=== PATIENT | male | born 1965 | race Caucasian/White ===

== ENCOUNTER 2017-05-22 08:02 | Day surgery (SDC) | payer BC, SELFPAY | END 2017-05-22 09:00 | disposition home or self-care (01) | PROVIDERS: Family Provider Family Medicine; Visit Provider Internal Medicine | DX: R55 Syncope and collapse (principal); R42 Dizziness and giddiness | CPT/HCPCS: 33282; 96365; 96372; C1764 ==

== ENCOUNTER → 2017-07-28 07:59 | Outpatient (CLI) | payer BC, SELFPAY | PROVIDERS: PCP Family Medicine; Visit Provider Internal Medicine | DX: R00.2 Palpitations (principal); I47.1 Supraventricular tachycardia | CPT/HCPCS: 93017 ==

== ENCOUNTER 2017-09-16 07:07 | Day surgery (SDC) | payer BC, SELFPAY ==
[2017-09-16] VITALS (14 sets, daily range): BP systolic 107–155; BP diastolic 66–93; PULSE 53–84; RESP 16–18; TEMP 36.7; O2SAT 91–100; BMI 29.5
--- NOTE | 2017-09-16 | IR_ITS ---
CARDIAC CATHETERIZATION DATE OF CATHETERIZATION:09/16/2017 8:04 AM PROCEDURES: 1. Left heart catheterization 2. Left ventriculogram 3. Selective coronary angiogram INDICATION FOR TEST: 1. Angina pectoris class III 2. Risk factors for coronary artery disease 3. Abnormal stress test Informed consent was obtained prior to the procedure. COMPLICATIONS: None ESTIMATED BLOOD LOSS: Less than 10 ml. TECHNIQUE: One percent lidocaine used to anesthetize the right anterior aspect of the wrist. The right radial artery was accessed via the Seldinger technique. A 6 Samoan sheath was placed in the right radial artery. 2.5 mg of verapamil, 800 mcg of nitroglycerin and 5000 U Heparin were given through the arterial sheath. The trap catheter was also used to perform left heart catheterization and left ventriculography. At the end of the procedure the patient was transferred to the post-op holding area in stable condition for arterial sheath removal. ANGIOGRAPHIC RESULTS: 1. The left main artery normal 2. The left anterior descending artery is widely patent. 3. The Ramus intermedius is widely patent. 4. The circumflex artery normal 5. The right coronary artery dominant normal 6. The MCGILL ventriculogram reveals normal 65% 7. The left ventricular end-diastolic pressure 10 mmHg IMPRESSION: 1. Widely patent stent in the mid LAD and Ramus. 2. Persistent mild to moderate nonflow limiting disease in the mid LAD. 3. Normal ejection fraction 4. Normal left ventricular end-diastolic pressure PLAN: 1. Evaluation noncardiac chest pain 2. Risk factor modification
[2017-09-16 07:43] LABS: Basophils # 0.1 K/mm3 (0-0.2); Eosinophils # 0.2 K/mm3 (0.0-0.4); Eosinophils % 3.7 % (0.1-12.0); Hematocrit 43.7 % (42.0-52.0); Hemoglobin 14.5 g/dL (14.1-18.0); Lymphocytes # 2.3 K/mm3 (0.7-4.5); Lymphocytes % 37.5 K/mm3 (10-50); Mean Corpuscular HGB Conc 33.3 g/dL (31.8-35.4); Mean Corpuscular Hemoglobin 28.8 pg (27.0-31.2); Mean Corpuscular Volume 86.4 fl (80-94); Mean Platelet Volume 8.7 fl (7.4-10.4); Monocytes # 0.5 K/mm3 (0.1-1.0); Monocytes % 7.3 % (1.7-9.3); Neutrophils # 3.1 K/mm3 (1.8-7.8); Neutrophils % 50.5 % (37.0-80.0); Platelet Count 161 K/mm3 (142-424); Red Blood Count 5.06 M/mm3 (4.60-6.20); White Blood Count 6.2 K/mm3 (4.8-10.8)
[2017-09-16 07:50] LABS: Anion Gap 10.7 mEq/L (5-15); Blood Urea Nitrogen 16 mg/dL (7-18); Carbon Dioxide 30 mmol/L (21.0-32.0); Chloride 100 mmol/L (98-107); Creatinine Clearance Estimated 123 mL/min (0-300); Creatinine,Serum 0.99 mg/dL (0.70-1.30); Estimated Glomerular Filt Rate 80 ml/min (>60); GFR (African American) 96 ML/MIN (>60); Glucose 262 mg/dL (74-106); Potassium 3.7 mmoL/L (3.5-5.1); Sodium 137 mmol/L (136-145)
== END 2017-09-16 12:07 | disposition home or self-care (01) ==
LOC: CATHLAB 07:08
PROVIDERS: PCP Family Medicine; Visit Provider Internal Medicine
DX: I25.118 Atherosclerotic heart disease of native coronary artery with other forms of angina pectoris (principal); R53.83 Other fatigue; R06.09 Other forms of dyspnea; I11.9 Hypertensive heart disease without heart failure; I47.1 Supraventricular tachycardia; Z95.5 Presence of coronary angioplasty implant and graft
CPT/HCPCS: 36415; 80048; 85025; 93458; 99152; C1725; C1769; J1644; Q9967

== ENCOUNTER → 2018-02-18 14:44 | Outpatient (CLI) | payer BC, SELFPAY | PROVIDERS: PCP Family Medicine; Visit Provider Family Medicine | DX: R00.2 Palpitations (principal) | CPT/HCPCS: 93270 ==

== ENCOUNTER → 2018-07-26 10:22 | Outpatient (POV) | payer BC, SELFPAY | PROVIDERS: Visit Provider Nurse Practitioner Acute Care | DX: Z00.00 Encounter for general adult medical examination without abnormal findings (principal) ==

== ENCOUNTER → 2018-12-21 12:15 | Outpatient (CLI) | payer BC, SELFPAY ==
[2018-12-21 14:16] LABS: Prostate Specific Ag Screen 0.5 ng/mL (0.0-4.0)
== END ==
PROVIDERS: Visit Provider Urology
DX: Z12.5 Encounter for screening for malignant neoplasm of prostate (principal); N40.0 Benign prostatic hyperplasia without lower urinary tract symptoms
CPT/HCPCS: 36415; G0103

== ENCOUNTER → 2018-12-27 13:11 | Outpatient (CLI) | payer BC, SELFPAY ==
--- NOTE | 2018-12-27 13:13 | CT_ITS ---
CT abdomen pelvis wo con CLINICAL INDICATION: Kidney stones, painful urinary tract. ITS.REASON: kidney stone ORDERING PHYSICIAN: Tom Roa MD PATIENT AGE: 53 years COMPARISON: 01/26/2014 TECHNIQUE: Axial images obtained with sagittal and coronal reformats. All CT scans at the facility use one or more dose reduction, viz: automated exposure control, ma/kV adjustment per patient size (including targeted exams where dose is matched to indication, i.e. head), or iterative reconstruction technique. PROCEDURE: Oral Contrast: None IV Contrast: None . FINDINGS: There is a small hiatal hernia. Vague areas of decreased attenuation involving the liver consistent with hepatic steatosis. The gallbladder, spleen, adrenal glands, and pancreas have an unremarkable appearance. Surgical clips are present in the epigastric region. There is a nonobstructing 3 mm stone in the lower pole the right kidney and in the upper pole the right kidney. Subtle isodense involves left kidney posteriorly may be due to a small cyst at 1.5 cm. No hydronephrosis. No ureteral calculi. Unremarkable appendix. No intestinal obstruction or free air. The redundant sigmoid colon. There is mild amount of retained colonic feces. No evidence of diverticulitis. Urinary bladder has an unremarkable appearance. No acute bony anomalies. IMPRESSION: 1. Nonobstructing right renal calculi. 2. Mild amount of retained colonic feces with other nonacute findings as described above
== END ==
PROVIDERS: PCP Family Medicine; Visit Provider Urology
DX: N20.0 Calculus of kidney (principal)
CPT/HCPCS: 74176

== ENCOUNTER → 2020-06-14 14:21 | Outpatient (CLI) | payer MEDICARE, SELFPAY ==
[2020-06-16 17:47] LABS: Covid-19 Nasal PCR Sendout Lex Not Detected
== END ==
PROVIDERS: PCP Nurse Practitioner; Visit Provider Nurse Practitioner
DX: Z03.818 Encounter for observation for suspected exposure to other biological agents ruled out (principal)
CPT/HCPCS: U0004

== ENCOUNTER → 2020-09-21 11:55 | Outpatient (CLI) | payer MEDICARE, SELFPAY ==
[2020-09-21 12:49] LABS: Basophils # 0.1 K/mm3 (0-0.2); Basophils % 0.6 % (0.1-2.0); Eosinophils # 0.4 K/mm3 (0.0-0.4); Eosinophils % 4.5 % (0.1-12.0); Hematocrit 39.8 % (42.0-52.0); Hemoglobin 13.4 g/dL (14.1-18.0); Lymphocytes # 2.4 K/mm3 (0.7-4.5); Lymphocytes % 27.1 % (10-50); Mean Corpuscular HGB Conc 33.6 g/dL (31.8-35.4); Mean Corpuscular Hemoglobin 28.2 pg (27.0-31.2); Monocytes # 0.5 K/mm3 (0.1-1.0); Monocytes % 6.1 % (1.7-9.3); Neutrophils # 5.4 K/mm3 (1.8-7.8); Neutrophils % 61.7 % (37.0-80.0); Platelet Count 187 K/mm3 (142-424); Red Blood Count 4.73 M/mm3 (4.60-6.20); Red Cell Distribution Width 12.9 % (11.5-17.5); White Blood Count 8.8 K/mm3 (4.8-10.8)
== END ==
PROVIDERS: PCP Family Medicine; Visit Provider Nurse Practitioner Family
DX: Z20.822 Contact with and (suspected) exposure to COVID-19 (principal); D64.9 Anemia, unspecified
CPT/HCPCS: 36415; 85025; U0003

== ENCOUNTER 2020-10-22 19:31 | Emergency (ER) | payer MEDICARE, SELFPAY ==
[2020-10-22 19:32] VITALS: BP 165/106; PULSE 105; RESP 16; TEMP 36.8; O2SAT 100; BMI 26.7
--- NOTE | 2020-10-22 20:07 | HMH.EDGENADL ---
ED Disposition Clinical Impression: Right leg swelling Disposition: Home, Self-Care Condition on Discharge: Good Additional Instructions: First dose of Xarelto given in the ER. Prescription given and should be filed results will be reported to your primary care doctor, Dr. Nation. Only if ultrasound tomorrow confirms right lower extremity DVT. Please call his office tomorrow afternoon. If needing anticoagulation, please be careful as you are more prone to bleeding including GI bleeding and bleeding from trauma. You should follow-up with Dr. Nation for further counseling on anticoagulation. If any worsening swelling, chest pain, shortness of breath, lightheadedness, syncope, or other new concerning symptoms please report back immediately to the emergency department. Prescriptions: Rivaroxaban [Xarelto 20mg Tablet*] 20 mg PO DAILY #14 tab Prescription Printed Referrals: Mohsen Nation MD [Primary Care Provider] - - Critical Care Critical Care Time: No Attestation: On 10/22/20, the high probability of a clinically significant, sudden or life threatening deterioration of the following system(s) required my full and direct attention, intervention and personal management. The time I documented below is in addition to time spent performing reported procedures but includes the following listed in this critical care notation. Medical Decision Making - Medical Records Medical records reviewed: Yes: I reviewed the patient's medical records. - Josh Inquiry Pt receiving controlled substance: No Vital Signs: 10/22/20 19:32 Temperature 98.3 F Temperature Source Oral Pulse Rate [Right] 105 H Respiratory Rate 16 Blood Pressure [Right Arm] 165/106 H Blood Pressure Mean [Right Arm] 125 02 Sat by Pulse Oximetry 100 - Lab Data Lab Results 10/22/20 20:26: POC Glucose 316 H* Orders (Tests/Meds): ED MEDICATIONS Generic Name Dose Route Start Last Admin Trade Name Freq PRN Reason Stop Dose Admin Rivaroxaban 20 mg 10/23/20 21:01 Rivaroxaban 10mg Tablet PO 10/23/20 21:02 ONCE ONE ORDERS Category Date Time Status Tibia/fibula XR right 2 views [XR tibia fibula RT 2V] Exams 10/22/20 20:11 Taken Stat Medical Decision Narrative: Patient presents with unilateral right leg swelling. Otherwise patient has no symptoms. Differential diagnosis does include DVT versus superficial thrombophlebitis versus cellulitis versus lymphedema. At this time, no overlying signs of infection on examination. He does have full range of motion with negative Homans' sign but does have some mild tenderness to palpation of posterior calf it is swollen compared to the left. X-ray obtained demonstrates no traumatic injuries. I did perform a bedside ultrasound I am concerned for a DVT noted in patient's femoral vein. The vein was minimally compressible. I discussed this with patient. Decision for first dose of Xarelto to be given in the ER made and formal ultrasound ordered for tomorrow morning. I did provide a short course prescription and patient will only fill this if ultrasound confirms DVT tomorrow. He will also follow-up with his PCP Dr. Nation in the afternoon via phone call to ensure he is aware of results. Patient will return immediately to the emergency department if any difficulty obtaining ultrasound, chest pain, shortness of breath, worsening swelling, decreased range of motion, or other new concerning symptoms. Assessment: Right lower extremity swelling concern for DVT Disposition: Home with plan for ultrasound tomorrow morning General Adult HPI - General Chief complaint: Extremity Injury, Lower Stated complaint: Swollen R leg cesar reffered to ED Time Seen by Provider: 10/22/20 21:08 Mode of Arrival: Ambulatory Limitations: No Limitations Description of Symptoms (Recalled from ER Triage Doc. by RN): pt states rt lower leg is swollen after waking up from a nap @ 6 tonight. - History of Present
--- NOTE | 2020-10-22 20:11 | XR_ITS ---
PROCEDURE: XR TIBIA FIBULA RT 2V CLINICAL INDICATION: RLE swelling Pain redness and swelling COMPARISON: No exams were available for comparison FINDINGS: No fracture or dislocation. No lytic or blastic change. There is normal mineralization. Mild osteoarthritic change at the knee and ankle. No fracture or dislocation. No lytic or blastic change. Other findings:Mild subcutaneous edema. IMPRESSION: Mild subcutaneous edema. No acute bony findings Dictated by: Sean Grover MD 10/23/2020 04:50 Sean Grover MD in [facility] 10/23/2020 04:50
[2020-10-22 20:34] LABS: POC Glucose,Bedside 316 (70-110)
[2020-10-22 21:33] VITALS: BP 142/70; PULSE 70; RESP 18; TEMP 36.8; O2SAT 98
== END 2020-10-22 21:36 | disposition home or self-care (01) ==
PROVIDERS: Emergency Provider Family Medicine; PCP Family Medicine
DX: M79.661 Pain in right lower leg (principal); M79.89 Other specified soft tissue disorders; I48.91 Unspecified atrial fibrillation; I25.10 Atherosclerotic heart disease of native coronary artery without angina pectoris; F41.8 Other specified anxiety disorders; E78.5 Hyperlipidemia, unspecified; I10 Essential (primary) hypertension; E11.65 Type 2 diabetes mellitus with hyperglycemia; Z87.442 Personal history of urinary calculi
CPT/HCPCS: 73590; 82962; 99282

== ENCOUNTER → 2020-10-23 11:02 | Outpatient (CLI) | payer MEDICARE, SELFPAY ==
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
== END ==
PROVIDERS: PCP Family Medicine; Visit Provider Emergency Medicine
DX: R60.1 Generalized edema (principal)
CPT/HCPCS: 93971

== ENCOUNTER → 2021-06-04 15:56 | Outpatient (CLI) | payer MEDICARE, SELFPAY | PROVIDERS: PCP Family Medicine; Visit Provider Nurse Practitioner | DX: Z20.822 Contact with and (suspected) exposure to COVID-19 (principal) | CPT/HCPCS: C9803; U0003; U0005 ==

== ENCOUNTER → 2021-08-14 10:40 | Outpatient (CLI) | payer MEDICARE, SELFPAY ==
[2021-08-15 09:42] LABS: Covid-19 Nasal PCR Sendout Lex POSITIVE
== END ==
PROVIDERS: PCP Family Medicine; Visit Provider Nurse Practitioner
DX: U07.1 COVID-19 (principal)
CPT/HCPCS: C9803; U0004; U0005

== ENCOUNTER 2021-11-19 18:48 | Emergency (ER) | payer MEDICARE, SELFPAY ==
[2021-11-19 18:49] VITALS: BP 158/104; PULSE 89; RESP 20; TEMP 37.1; O2SAT 98; BMI 27.8
--- NOTE | 2021-11-19 18:55 | CT_ITS ---
PROCEDURE INFORMATION: Exam: CT Head Without Contrast Exam date and time: 11/19/2021 7:05 PM Age: 56 years old Clinical indication: Pain; Headache not specified TECHNIQUE: Imaging protocol: Computed tomography of the head without contrast. Radiation optimization: All CT scans at this facility use at least one of these dose optimization techniques: automated exposure control; mA and/or kV adjustment per patient size (includes targeted exams where dose is matched to clinical indication); or iterative reconstruction. COMPARISON: No relevant prior studies available. FINDINGS: Brain: No acute intracranial hemorrhage. No intra- or extra-axial fluid collection. No mass effect or midline shift. Cerebral ventricles: No hydrocephalus. Paranasal sinuses: No air fluid levels in the visualized paranasal sinuses. Mastoid air cells: Visualized mastoid air cells are well aerated. Bones/joints: No acute calvarial or skull base fracture. Soft tissues: Unremarkable. IMPRESSION: No evidence of acute intracranial abnormality.
--- NOTE | 2021-11-19 18:55 | XR_ITS ---
PROCEDURE INFORMATION: Exam: XR Chest Exam date and time: 11/19/2021 7:00 PM Age: 56 years old Clinical indication: Other: Fatigue TECHNIQUE: Imaging protocol: XR of the chest. Views: 1 view. COMPARISON: CR CXR1 CHEST-PORTABLE 06/13/2017 6:51 PM FINDINGS: Lungs: Lungs are clear. Pleural spaces: No pleural effusion. No pneumothorax. Heart/Mediastinum: Cardiomediastinal silouhette is within normal limits. Implanted cardiac monitoring device noted. Bones/joints: No acute osseous abnormality. Soft tissues: Unremarkable. IMPRESSION: No acute findings.
--- NOTE | 2021-11-19 18:56 | ECG_ITS ---
APPROVED REPORT Exam: Resting ECG HR:85 bpm ECG Measurements Heart Rate 85 AXES OK 148 P 16 QRSd 97 QRS 112 QT 372 T 0 QTc 414 Conclusion SINUS RHYTHM INCOMPLETE RIGHT BUNDLE BRANCH BLOCK [90+ ms QRS DURATION, TERMINAL R IN V1/V2, 40+ ms S IN I/aVL/V4/V5/V6] POSSIBLE RIGHT VENTRICULAR HYPERTROPHY [SOME/ALL OF: PROMINENT R IN V1, LATE TRANSITION, RAD, JAYNA, SSS] ABNORMAL ECG UNCONFIRMED REPORT Electronically signed by : Mohsen Mullins MD 11/21/2021 21:12:00
[2021-11-19 19:13] LABS: Basophils # 0.1 K/mm3 (0-0.2); Basophils % 2.3 % (0.1-2.0); Eosinophils # 0.3 K/mm3 (0.0-0.4); Eosinophils % 4.3 % (0.1-12.0); Hematocrit 38.7 % (42.0-52.0); Hemoglobin 13.5 g/dL (14.1-18.0); Lymphocytes # 1.9 K/mm3 (0.7-4.5); Lymphocytes % 30.5 % (10-50); Mean Corpuscular HGB Conc 34.9 g/dL (31.8-35.4); Mean Corpuscular Hemoglobin 29.5 pg (27.0-31.2); Mean Corpuscular Volume 84.6 fl (80-94); Monocytes # 0.5 K/mm3 (0.1-1.0); Monocytes % 7.5 % (1.7-9.3); Neutrophils # 3.5 K/mm3 (1.8-7.8); Neutrophils % 55.6 % (37.0-80.0); Platelet Count 188 K/mm3 (142-424); Red Blood Count 4.57 M/mm3 (4.60-6.20); Red Cell Distribution Width 13.4 % (11.5-17.5); White Blood Count 6.3 K/mm3 (4.8-10.8)
[2021-11-19 19:28] LABS: Chloride 99 mmol/L (98-107)
[2021-11-19 19:29] LABS: Potassium 3.5 mmoL/L (3.5-5.1); Sodium 135 mmol/L (136-145)
[2021-11-19 19:31] LABS: Alanine Aminotransferase 20 U/L (12-78); Alkaline Phosphatase 89 U/L (38-126); Anion Gap 10.5 mEq/L (5-15); Aspartate Amino Transferase 27 U/L (17-59); Bilirubin,Total 0.7 mg/dl (0.2-1.3); Blood Urea Nitrogen 25 mg/dl (9-20); Carbon Dioxide 29 mmol/L (22.0-30.0); Creatinine Clearance Estimated 57 mL/min (50-200); Estimated Glomerular Filt Rate 37 ml/min (>60); GFR (African American) 45 ML/MIN (>60)
[2021-11-19 19:32] LABS: Albumin Level 4.3 g/dl (3.5-5.0); Albumin/Globulin Ratio 1.4 (1.1-1.8); Calcium 9.7 mg/dl (8.4-10.2); Glucose 282 mg/dl (74-100); Total Protein,Serum 7.3 g/dl (6.3-8.2)
--- NOTE | 2021-11-19 19:48 | HMH.EDGENADL ---
ED Disposition Clinical Impression: Tension headache Disposition: Home, Self-Care Condition on Discharge: Fair Instructions: DI for Headache Additional Instructions: You have been evaluated for headache. Consistent with tension headache. Please take Tylenol or ibuprofen for pain. Fioricet at the onset of migraine type pain. Follow-up with your primary care doctor. Try to avoid changes in sleep, diet, exercise, caffeine. Return to the emergency department at once for any new or worsening symptoms, fever, vision changes, headache, numbness, weakness, tingling or other concerns Referrals: Mohsen Nation MD [Primary Care Provider] - Time of Disposition: : - Critical Care Critical Care Time: No Attestation: On 11/19/21, the high probability of a clinically significant, sudden or life threatening deterioration of the following system(s) required my full and direct attention, intervention and personal management. The time I documented below is in addition to time spent performing reported procedures but includes the following listed in this critical care notation. Medical Decision Making - Medical Records Medical records reviewed: Yes: I reviewed the patient's medical records. - Josh Inquiry Pt receiving controlled substance: No Vital Signs: 11/19/21 18:49 Temperature 98.8 F Temperature Source Oral Pulse Rate [Left Radial] 89 Respiratory Rate 20 Blood Pressure [Right Arm] 158/104 H Blood Pressure Mean [Right Arm] 122 Blood Pressure Source [Right Arm] Automatic Cuff Blood Pressure Position [Right Arm] Sitting 02 Sat by Pulse Oximetry 98 Oxygen Delivery Method Room Air - Lab Data Lab Results 11/19/21 19:03: WBC 6.3, RBC 4.57 L, Hgb 13.5 L, Hct 38.7 L, MCV 84.6, MCH 29.5, MCHC 34.9, RDW 13.4, Plt Count 188, MPV 9.0, Neut % (Auto) 55.6, Lymph % (Auto) 30.5, Charles % (Auto) 7.5, Eos % (Auto) 4.3, Baso % (Auto) 2.3 H, Neut # (Auto) 3.5, Lymph # (Auto) 1.9, Charles # (Auto) 0.5, Eos # (Auto) 0.3, Baso # (Auto) 0.1 11/19/21 19:03: Sodium 135 L, Potassium 3.5, Chloride 99, Carbon Dioxide 29, Anion Gap 10.5, BUN 25 H, Creatinine 1.90 H, Estimated Creat Clear 57, Estimated GFR 37 L, Est GFR ( Amer) 45 L, Glucose 282 H, Calcium 9.7, Total Bilirubin 0.7, AST 27, ALT 20, Alkaline Phosphatase 89, Total Protein 7.3, Albumin 4.3, Globulin 3.0, Albumin/Globulin Ratio 1.4 Result diagrams: 11/19/21 19:03 11/19/21 19:03 Orders (Tests/Meds): ED MEDICATIONS Generic Name Dose Route Start Last Admin Trade Name Freq PRN Reason Stop Dose Admin Sodium Chloride 1,000 mls @ 999 mls/hr 11/19/21 19:00 11/19/21 19:53 Sod Chlor 0.9% 1000ml Bag IV 11/19/21 20:00 999 mls/hr .Q1H1M SRIKANTH Administration Discontinued Medications Generic Name Dose Route Start Last Admin Trade Name Freq PRN Reason Stop Dose Admin Diphenhydramine HCl 25 mg 11/19/21 18:56 11/19/21 19:53 Diphenhydramine 50mg/Ml Vial IV 11/19/21 18:57 25 mg ONCE ONE Administration Ketorolac Tromethamine 15 mg 11/19/21 18:56 11/19/21 19:53 Ketorolac 30mg/Ml Vial IV 11/19/21 18:57 15 mg ONCE ONE Administration Metoclopramide HCl 10 mg 11/19/21 18:56 11/19/21 19:53 Metoclopramide Hcl 10mg/2ml Vial IVP 11/19/21 18:57 10 mg ONCE ONE Administration ORDERS Category Date Time Status CT abdomen pelvis wo con Stat Cat Scan 11/19/21 19:57 Taken Rapid PCR Covid and Flu A/B Stat Lab 11/19/21 18:55 Ordered UA [Urinalysis and Microscopic] Stat Lab 11/19/21 19:59 Ordered ECG Request by /Spike Stat Y 11/19/21 18:56 Ordered Medical Decision Narrative: In summary this is a 56-year-old male with history of hypertension, diabetes, DVT who presents to the emergency department with headache. Patient clinically stable on arrival. Vital signs within normal limits. Afebrile. Will obtain CBC, CMP, EKG, noncontrast head CT. Patient given IV fluids, Toradol, Reglan, Benadryl. Initial laboratory results show e
--- NOTE | 2021-11-19 19:57 | CT_ITS ---
PROCEDURE INFORMATION: Exam: CT Abdomen And Pelvis Without Contrast Exam date and time: 11/19/2021 8:03 PM Age: 56 years old Clinical indication: Other: Dysuria; Additional info: Dysuria, stone suspected TECHNIQUE: Imaging protocol: Computed tomography of the abdomen and pelvis without contrast. Radiation optimization: All CT scans at this facility use at least one of these dose optimization techniques: automated exposure control; mA and/or kV adjustment per patient size (includes targeted exams where dose is matched to clinical indication); or iterative reconstruction. COMPARISON: PENDING SALE TO [facility] CT abdomen pelvis wo con 12/27/2018 1:30 PM FINDINGS: Diaphragm: Small hiatal hernia, unchanged. Liver: Unremarkable. Gallbladder and bile ducts: Unremarkable. Pancreas: Unremarkable. Spleen: Mild splenomegaly, measuring 13.0 cm in craniocaudal axis. Adrenal glands: Unremarkable. Kidneys and ureters: Multiple non-obstructing stones in the bilateral renal pelvises measuring between 2-6 mm. Stable left simple renal cyst. Stomach and bowel: Unremarkable. Appendix: Appendix is visualized and is normal. Intraperitoneal space: No free fluid. No pneumoperitoneum. Vasculature: Phleboliths noted in the pelvis. Lymph nodes: Unremarkable. Urinary bladder: Unremarkable. Reproductive: Unremarkable. Bones/joints: Variant lumbosacral anatomy with sacralization of L5. No acute osseous abnormality. Soft tissues: Unremarkable. IMPRESSION: 1. No acute findings in the abdomen or pelvis. 2. Multiple non-obstructing stones in the bilateral kidneys. No evidence of obstructive uropathy. 3. Mild splenomegaly. 4. Variant transitional lumbosacral anatomy with sacralization of L5. 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
[2021-11-19 21:00] VITALS: BP 135/85; PULSE 76; RESP 18; TEMP 36.7; O2SAT 98
[2021-11-19 21:18] LABS: Microscopic, Urine URINE MICROSCOPIC (MICROSCOPIC)
[2021-11-19 21:18] LABS: Coronavirus 19, PCR Not Detected (NotDetected); Influenza A, PCR Not Detected (NotDetected); Influenza B, PCR Not Detected (NotDetected)
[2021-11-19 21:20] LABS: Appearance,Urine CLEAR (Clear); Bilirubin,Urine Negative (Negative); Blood, Urine Negative (Negative); Color,Urine YELLOW (Yellow); Glucose,Urine (UA) 3+ (Negative); Ketones,Urine Negative (Negative); Leukocyte Esterase,Urine Negative (Negative); Nitrate,Urine Negative (Negative); Protein,Urine Negative (Negative); Specific Gravity, Urine 1.025 (1.005-1.030); Urobilinogen,Urine 0.2 EU/dl (0.2)
[2021-11-19 21:41] LABS: Bacteria,Urine Trace /lpf; WBC,Urine Occasional #/hpf (0-3)
== END 2021-11-19 21:15 | disposition home or self-care (01) ==
PROVIDERS: Emergency Provider Emergency Medicine; PCP Family Medicine
DX: G44.209 Tension-type headache, unspecified, not intractable (principal); R00.2 Palpitations; R53.82 Chronic fatigue, unspecified; Z20.822 Contact with and (suspected) exposure to COVID-19; I10 Essential (primary) hypertension; I25.10 Atherosclerotic heart disease of native coronary artery without angina pectoris; I48.91 Unspecified atrial fibrillation; R78.5 Finding of other psychotropic drug in blood; N20.0 Calculus of kidney; E11.9 Type 2 diabetes mellitus without complications; F41.9 Anxiety disorder, unspecified; Z79.01 Long term (current) use of anticoagulants; Z79.4 Long term (current) use of insulin; Z79.82 Long term (current) use of aspirin; Z79.899 Other long term (current) drug therapy; Z88.8 Allergy status to other drugs, medicaments and biological substances; Z88.7 Allergy status to serum and vaccine
CPT/HCPCS: 70450; 71045; 74176; 80053; 81001; 85025; 93005; 96361; 96374; 96375; 99285; C9803; U0003; U0005

== ENCOUNTER 2022-02-26 20:10 | Emergency (ER) | payer MEDICARE, SELFPAY ==
[2022-02-26 20:11] VITALS: BP 187/98; PULSE 118; RESP 18; TEMP 37.5; O2SAT 99; BMI 27.8
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
[2022-02-26 21:00] VITALS: BP 171/87; PULSE 94; RESP 18; TEMP 37.5; O2SAT 99
== END 2022-02-26 21:06 | disposition home or self-care (01) ==
PROVIDERS: Emergency Provider Emergency Medicine; PCP Family Medicine
DX: T24.132A Burn of first degree of left lower leg, initial encounter (principal); T31.0 Burns involving less than 10% of body surface; X08.8XXA Exposure to other specified smoke, fire and flames, initial encounter
CPT/HCPCS: 99283

== ENCOUNTER 2022-03-06 05:04 | Emergency (ER) | payer MEDICARE, SELFPAY ==
[2022-03-06] VITALS (18 sets, daily range): BP systolic 106–172; BP diastolic 69–96; PULSE 69–94; RESP 17–18; TEMP 36.9; O2SAT 97–100; BMI 28.5
--- NOTE | 2022-03-06 05:00 | ECG_ITS ---
APPROVED REPORT Exam: Resting ECG HR:99 bpm ECG Measurements Heart Rate 99 AXES DC 138 P 37 QRSd 108 QRS 119 QT 350 T -5 QTc 406 Conclusion SINUS RHYTHM INCOMPLETE RIGHT BUNDLE BRANCH BLOCK [90+ ms QRS DURATION, TERMINAL R IN V1/V2, 40+ ms S IN I/aVL/V4/V5/V6] Poor r wave progression INFERIOR MYOCARDIAL INFARCTION , not seen on tracing from 11/2021 ABNORMAL ECG UNCONFIRMED REPORT Electronically signed by : Mohsen Mullins MD 03/08/2022 08:10:22
--- NOTE | 2022-03-06 05:10 | XR_ITS ---
PROCEDURE INFORMATION: Exam: XR Chest Exam date and time: 03/06/2022 5:10 AM Age: 56 years old Clinical indication: Other: Tachycardia; Prior surgery; Additional info: Heart racing TECHNIQUE: Imaging protocol: Radiologic exam of the chest. Views: 2 views. COMPARISON: CR XR CHEST PORTABLE 11/19/2021 7:00 PM FINDINGS: Tubes, catheters and devices: Loop recording device projects over the left hemithorax. Lungs: Unremarkable. No consolidation. Pleural spaces: Unremarkable. No pleural effusion. No pneumothorax. Heart/Mediastinum: Unremarkable. No cardiomegaly. Bones/joints: Unremarkable. IMPRESSION: No acute cardiopulmonary abnormality.
[2022-03-06 05:24] LABS: Basophils # 0.1 K/mm3 (0-0.2); Basophils % 1.1 % (0.1-2.0); Eosinophils # 0.4 K/mm3 (0.0-0.4); Eosinophils % 4.5 % (0.1-12.0); Hematocrit 37.8 % (42.0-52.0); Hemoglobin 12.2 g/dL (14.1-18.0); Lymphocytes # 2.7 K/mm3 (0.7-4.5); Lymphocytes % 34.6 % (10-50); Mean Corpuscular HGB Conc 32.4 g/dL (31.8-35.4); Mean Corpuscular Hemoglobin 27.9 pg (27.0-31.2); Mean Corpuscular Volume 86.2 fl (80-94); Mean Platelet Volume 8.1 fl (7.4-10.4); Monocytes # 0.7 K/mm3 (0.1-1.0); Monocytes % 8.5 % (1.7-9.3); Neutrophils % 51.2 % (37.0-80.0); Platelet Count 313 K/mm3 (142-424); Red Blood Count 4.39 M/mm3 (4.60-6.20); White Blood Count 7.8 K/mm3 (4.8-10.8)
--- NOTE | 2022-03-06 05:27 | CT_ITS ---
PROCEDURE INFORMATION: Exam: CTA Chest With Contrast Exam date and time: 03/06/2022 5:47 AM Age: 56 years old Clinical indication: Other: Tachycardia; Prior surgery; Additional info: Heart racing TECHNIQUE: Imaging protocol: Computed tomographic angiography of the chest with contrast. 3D rendering (Not supervised by radiologist): MIP and/or 3D reconstructed images were created by the technologist. Radiation optimization: All CT scans at this facility use at least one of these dose optimization techniques: automated exposure control; mA and/or kV adjustment per patient size (includes targeted exams where dose is matched to clinical indication); or iterative reconstruction. Contrast material: ISOVUE; Contrast volume: 70 ml; Contrast route: INTRAVENOUS (IV); COMPARISON: CR XR CHEST 2V 03/06/2022 5:10 AM FINDINGS: Pulmonary arteries: No pulmonary emboli identified to the level of the proximal segmental vessels. Aorta: Unremarkable. No aortic aneurysm. No aortic dissection. Lungs: There is a 9 mm right lower lobe pulmonary nodule. There is a 5 mm left upper lobe pulmonary nodule on series image 32. No focal airspace consolidation. Pleural spaces: Unremarkable. No pneumothorax. No pleural effusion. Heart: Unremarkable. No cardiomegaly. No pericardial effusion. Lymph nodes: Unremarkable. No enlarged lymph nodes. Diaphragm: Small hiatal hernia. Bones/joints: Unremarkable. No acute fracture. Soft tissues: Unremarkable. IMPRESSION: 1. No pulmonary emboli identified to the level of the proximal segmental vessels. 2. There is a 9 mm right lower pulmonary nodule. For patients at low risk (minimal or absent history of smoking and of other known risk factors), recommend CT Chest at 3-6 months, then consider CT Chest at 18-24 months. For patients at high risk (history of smoking or of other known risk factors), recommend CT Chest at 3-6 months, then CT Chest at 18-24 months. (Reference: Dontae) REFERENCES: Dontae Brush et al. Guidelines for Management of Incidental Pulmonary Nodules Detected on CT Images: From the Fleischner Society 2017. Radiology. 2017;284(1):228-243.
[2022-03-06 05:31] LABS: Alanine Aminotransferase 23 U/L (12-78); Albumin Level 4.5 g/dl (3.5-5.0); Alkaline Phosphatase 99 U/L (38-126); Aspartate Amino Transferase 30 U/L (17-59); Bilirubin,Direct 0.3 mg/dl (0.0-0.4); Bilirubin,Total 0.3 mg/dl (0.2-1.3); Bilirubin,Unconjugated 0.1 mg/dL (0.0-1.1); Blood Urea Nitrogen 16 mg/dl (9-20); Calcium 9.7 mg/dl (8.4-10.2); Carbon Dioxide 26 mmol/L (22.0-30.0); Chloride 101 mmol/L (98-107); Creatinine Clearance Estimated 57 mL/min (50-200); Estimated Glomerular Filt Rate 37 ml/min (>60); GFR (African American) 45 ML/MIN (>60); Glucose 199 mg/dl (74-100); Sodium 140 mmol/L (136-145)
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
[2022-03-06 05:37] LABS: C-Reactive Protein 29.9 mg/L (0-4)
--- NOTE | 2022-03-06 05:38 | PC.NURSE ---
critical received potassium 3.0
[2022-03-06 05:51] LABS: Procalcitonin 0.089 ng/mL (0.0-2.0)
--- NOTE | 2022-03-06 05:55 | PC.NURSE ---
pt gone to ct
[2022-03-06 05:57] LABS: Erythrocyte Sedimentation Rate 44 mm/hr (0-20)
--- NOTE | 2022-03-06 06:37 | PC.NURSE ---
pt updated on poc and that we are awaiting time for 2nd trop
[2022-03-06 06:51] LABS: Troponin I < 0.01 ng/ml (0.00-0.034)
--- NOTE | 2022-03-06 07:51 | PC.NURSE ---
Christina, Director Translation at [facility] drawing 2nd troponin at this time
--- NOTE | 2022-03-06 08:02 | PC.NURSE ---
2nd trop sent to lab
[2022-03-06 09:08] LABS: Troponin I < 0.01 ng/ml (0.00-0.034)
--- NOTE | 2022-03-06 09:15 | PC.NURSE ---
October, RN at going over discharge information
== END 2022-03-06 09:22 | disposition home or self-care (01) ==
PROVIDERS: Emergency Provider Emergency Medicine; PCP Family Medicine
DX: R00.2 Palpitations (principal); E11.9 Type 2 diabetes mellitus without complications; Z86.718 Personal history of other venous thrombosis and embolism; Z79.01 Long term (current) use of anticoagulants
CPT/HCPCS: 36415; 71046; 71275; 80048; 80076; 84145; 84484; 85025; 85651; 86140; 93005; 96365; 96375; 99285; Q9967

== ENCOUNTER → 2022-09-01 10:08 | Outpatient (CLI) | payer MEDICARE, SELFPAY ==
[2022-09-01 10:36] LABS: Microscopic, Urine URINE MICROSCOPIC (MICROSCOPIC)
[2022-09-01 11:08] LABS: Appearance,Urine CLEAR (Clear); Bilirubin,Urine Negative (Negative); Blood, Urine Negative (Negative); Color,Urine YELLOW (Yellow); Glucose,Urine (UA) Negative (Negative); Ketones,Urine Negative (Negative); Leukocyte Esterase,Urine Negative (Negative); Nitrate,Urine Negative (Negative); PH,Urine 6.5 (5.0-8.5); Protein,Urine Negative (Negative)
[2022-09-01 11:14] LABS: Creatinine,Urine Random 126 mg/dL (Not Estab.)
[2022-09-01 11:16] LABS: Hematocrit 38.7 % (42.0-52.0); Hemoglobin 12.6 g/dL (14.1-18.0); Mean Corpuscular HGB Conc 32.5 g/dL (31.8-35.4); Mean Corpuscular Volume 86.3 fl (80-94); Platelet Count 203 K/mm3 (142-424); Red Blood Count 4.49 M/mm3 (4.60-6.20); Red Cell Distribution Width 13.6 % (11.5-17.5); White Blood Count 4.9 K/mm3 (4.8-10.8)
[2022-09-01 11:18] LABS: Bacteria,Urine Trace /lpf; Squamous Epithelial Cell,Urine Occasional #/hpf (0-5); WBC,Urine Occasional #/hpf (0-3)
[2022-09-01 11:20] LABS: Chloride 106 mmol/L (98-107); Potassium 4.4 mmoL/L (3.5-5.1); Sodium 141 mmol/L (136-145)
[2022-09-01 11:23] LABS: Alanine Aminotransferase 22 U/L (12-78); Albumin/Globulin Ratio 1.4 (1.1-1.8); Alkaline Phosphatase 99 U/L (38-126); Anion Gap 12.4 mEq/L (5-15); Aspartate Amino Transferase 31 U/L (17-59); Bilirubin,Total 0.8 mg/dl (0.2-1.3); Blood Urea Nitrogen 20 mg/dl (9-20); Carbon Dioxide 27 mmol/L (22.0-30.0); Estimated Glomerular Filt Rate 39 ml/min (>60); GFR (African American) 47 ML/MIN (>60); Globulin 3.6 g/dL (1.3-3.2); Total Protein,Serum 8.6 g/dl (6.3-8.2)
[2022-09-01 11:24] LABS: Calcium 9.5 mg/dl (8.4-10.2); Glucose 235 mg/dl (74-100)
[2022-09-01 11:31] LABS: Hemoglobin A1C 8.4 % (4.0-6.0)
[2022-09-01 11:34] LABS: Uric Acid 4.6 mg/dl (3.5-8.5)
[2022-09-01 11:44] LABS: Intact Parathyroid Hormone 98.6 pg/mL (7.5-53.5)
[2022-09-01 11:50] LABS: 25-OH Vitamin D, Total 38.8 ng/mL (30-100)
== END ==
PROVIDERS: PCP Family Medicine; Visit Provider Internal Medicine Nephrology
DX: I10 Essential (primary) hypertension (principal); E11.65 Type 2 diabetes mellitus with hyperglycemia; N18.30 Chronic kidney disease, stage 3 unspecified; E66.9 Obesity, unspecified; Z68.30 Body mass index [BMI] 30.0-30.9, adult; Z79.4 Long term (current) use of insulin
CPT/HCPCS: 36415; 80053; 81001; 82306; 82570; 83036; 83970; 84155; 84550; 85014; 85018; 85048; 85049

== ENCOUNTER 2023-09-03 08:06 | Outpatient (CLI) | payer MEDICARE, SELFPAY ==
[2023-09-03 08:16] LABS: Microscopic, Urine URINE MICROSCOPIC (MICROSCOPIC)
[2023-09-03 08:53] LABS: Hematocrit 39.2 % (42.0-52.0); Mean Corpuscular HGB Conc 33.2 g/dL (31.8-35.4); Mean Corpuscular Hemoglobin 28.8 pg (27.0-31.2); Mean Corpuscular Volume 86.7 fl (80-94); Platelet Count 175 K/mm3 (142-424); Red Blood Count 4.53 M/mm3 (4.60-6.20); Red Cell Distribution Width 13.2 % (11.5-17.5)
[2023-09-03 08:55] LABS: Appearance,Urine CLEAR (Clear); Bilirubin,Urine Negative (Negative); Blood, Urine Negative (Negative); Color,Urine YELLOW (Yellow); Glucose,Urine (UA) 2+ (Negative); Ketones,Urine Negative (Negative); Leukocyte Esterase,Urine Negative (Negative); Nitrate,Urine Negative (Negative); Protein,Urine Negative (Negative); Specific Gravity, Urine 1.025 (1.005-1.030); Urobilinogen,Urine 0.2 EU/dl (0.2)
[2023-09-03 09:16] LABS: Chloride 99 mmol/L (98-107); Potassium 4.4 mmoL/L (3.5-5.1); Sodium 134 mmol/L (136-145)
[2023-09-03 09:17] LABS: Creatinine,Urine Random 148 mg/dL (Not Estab.)
[2023-09-03 09:18] LABS: Bacteria,Urine Trace /lpf; Squamous Epithelial Cell,Urine Occasional #/hpf (0-5)
[2023-09-03 09:19] LABS: Alanine Aminotransferase 18 U/L (12-78); Albumin Level 4.4 g/dl (3.5-5.0); Albumin/Globulin Ratio 1.8 (1.1-1.8); Alkaline Phosphatase 89 U/L (38-126); Anion Gap 7.4 mEq/L (5-15); Aspartate Amino Transferase 23 U/L (17-59); Bilirubin,Total 0.7 mg/dl (0.2-1.3); Blood Urea Nitrogen 22 mg/dl (9-20); Calcium 9.6 mg/dl (8.4-10.2); Carbon Dioxide 32 mmol/L (22.0-30.0); Estimated Glomerular Filt Rate 42 ml/min (>60); GFR (African American) 51 ML/MIN (>60); Globulin 2.5 g/dL (1.3-3.2); Glucose 302 mg/dl (74-100); Total Protein,Serum 6.9 g/dl (6.3-8.2)
[2023-09-03 09:26] LABS: Uric Acid 4.2 mg/dl (3.5-8.5)
[2023-09-03 09:31] LABS: Intact Parathyroid Hormone 62.5 pg/mL (7.5-53.5)
[2023-09-03 09:40] LABS: Hemoglobin A1C 11.1 % (4.0-6.0)
== END 2023-09-03 23:59 ==
LOC: LAB 08:08
PROVIDERS: PCP Family Medicine; Visit Provider Internal Medicine Nephrology
DX: I10 Essential (primary) hypertension; E11.65 Type 2 diabetes mellitus with hyperglycemia; N18.30 Chronic kidney disease, stage 3 unspecified; Z79.4 Long term (current) use of insulin
CPT/HCPCS: 36415; 80053; 81001; 82306; 82570; 83036; 83970; 84155; 84550; 85014; 85018; 85048; 85049

== ENCOUNTER 2023-09-05 11:41 | Outpatient (CLI) | payer MEDICARE, SELFPAY | END 2023-09-05 23:59 | LOC: LAB.DROPOF 11:44 | PROVIDERS: PCP Family Medicine; Visit Provider Internal Medicine Nephrology | DX: N18.30 Chronic kidney disease, stage 3 unspecified (principal) ==

== ENCOUNTER 2024-03-01 11:41 | Outpatient (CLI) | payer MEDICARE, SELFPAY ==
[2024-03-01 11:52] LABS: Microscopic, Urine URINE MICROSCOPIC (MICROSCOPIC)
[2024-03-01 12:15] LABS: Hematocrit 42.1 % (42.0-52.0); Hemoglobin 13.2 g/dL (14.1-18.0); Mean Corpuscular HGB Conc 31.4 g/dL (31.8-35.4); Mean Corpuscular Hemoglobin 27.9 pg (27.0-31.2); Mean Corpuscular Volume 88.8 fl (80-94); Platelet Count 193 K/mm3 (142-424); Red Blood Count 4.74 M/mm3 (4.60-6.20); Red Cell Distribution Width 13.9 % (11.5-17.5); White Blood Count 7.5 K/mm3 (4.8-10.8)
[2024-03-01 12:21] LABS: Hemoglobin A1C 11.9 % (4.0-6.0)
[2024-03-01 12:32] LABS: Appearance,Urine CLEAR (Clear); Bilirubin,Urine Negative (Negative); Blood, Urine Negative (Negative); Color,Urine YELLOW (Yellow); Glucose,Urine (UA) 3+ (Negative); Ketones,Urine Negative (Negative); Leukocyte Esterase,Urine Negative (Negative); Nitrate,Urine Negative (Negative); Protein,Urine Negative (Negative); Urobilinogen,Urine 0.2 EU/dl (0.2)
[2024-03-01 12:38] LABS: Bacteria,Urine Trace /lpf; Squamous Epithelial Cell,Urine Occasional #/hpf (0-5)
[2024-03-01 12:41] LABS: Creatinine,Urine Random 89 mg/dL (Not Estab.)
[2024-03-01 12:48] LABS: Alanine Aminotransferase 18 U/L (12-78); Albumin Level 4.2 g/dl (3.5-5.0); Albumin/Globulin Ratio 1.4 (1.1-1.8); Alkaline Phosphatase 82 U/L (38-126); Anion Gap 9.6 mEq/L (5-15); Aspartate Amino Transferase 23 U/L (17-59); Bilirubin,Total 0.6 mg/dl (0.2-1.3); Blood Urea Nitrogen 23 mg/dl (9-20); Calcium 9.7 mg/dl (8.4-10.2); Carbon Dioxide 29 mmol/L (22.0-30.0); Chloride 100 mmol/L (98-107); Estimated Glomerular Filt Rate 39 ml/min (>60); GFR (African American) 47 ML/MIN (>60); Glucose 327 mg/dl (74-100); Potassium 4.6 mmoL/L (3.5-5.1); Sodium 134 mmol/L (136-145); Total Protein,Serum 7.2 g/dl (6.3-8.2); Uric Acid 5.2 mg/dl (3.5-8.5)
[2024-03-01 13:04] LABS: 25-OH Vitamin D, Total 55.1 ng/mL (30-100)
[2024-03-01 14:20] LABS: Intact Parathyroid Hormone 62.6 pg/mL (7.5-53.5)
== END 2024-03-01 23:59 | disposition home or self-care (01) ==
LOC: LAB 11:46
PROVIDERS: PCP Family Medicine; Visit Provider Internal Medicine Nephrology
DX: I10 Essential (primary) hypertension (principal); E11.65 Type 2 diabetes mellitus with hyperglycemia; N18.30 Chronic kidney disease, stage 3 unspecified
CPT/HCPCS: 36415; 80053; 81001; 82306; 82570; 83036; 83970; 84156; 84550; 85014; 85018; 85048; 85049

== ENCOUNTER 2024-04-18 10:18 | Day surgery (SDC) | payer MEDICARE, SELFPAY ==
[2024-04-07 12:37] VITALS: BMI 27.1
--- NOTE | 2024-04-11 14:02 | SUR.PREOP ---
Spoke w/ pt and he is able to move up his procedure time to arrive @ 1030.
[2024-04-18] MEDS: LACTATED RINGERS 1000ML 1,000 ML 25 ML IV (10:55)
[2024-04-18 10:58] VITALS: BP 145/94; PULSE 68; RESP 18; TEMP 36.1; O2SAT 97
[2024-04-18 11:03] LABS: POC Glucose,Bedside 195 (70-110)
--- NOTE | 2024-04-18 11:49 | EXP.ANES.CKL ---
[facility] Disclaimer: The information contained in this section may have been updated after the patient was seen, as this information can be updated by other users. Medical History Kidney stones Mcadams esophagus Diabetes CAD (coronary artery disease) HTN (hypertension) Surgical History History of extraction of renal calculus History of heart artery stent History of cardiac radiofrequency ablation History of Simran fundoplication Family History Other Family history of diabetes mellitus Social History Smoking Status: Never smoker second hand exposure: No alcohol intake: never counseling provided: none substance use type: opiates current occupational status: employed and retired Travel in the last 8 weeks: None household members: spouse housing: house current occupational exposures/hazards: No caffeine: Yes [facility] Anesthesia Checklist Patient Identification Patient Identification: Arm Band Structural Data Admitted From: Home Planned Operative Procedure/s: EGD Consent for Planned Operative Procedure(s) Verified: Yes Verified Documents: Surgical Consent and History and Physical NPO Status Verified Time NPO: 00:00 Additional verifications Anesthesia Reactions: No Hx Blood Transfusions: No Blood Transfusion Reaction: No Airway Assessment Mallampati Score:: Class II C-Spine Mobility Assessed: Yes TMJ Mobility Assessed: Yes Dentition: Good Dentition Neurological Assessment Level of Consciousness: Awake, Alert and Appropriate Anesthesia Plan Anesthesia Risk discussed: Yes Anesthesia Plan: Verified ASA Class: III Anesthesia Type: MAC
[2024-04-18 11:51] VITALS: O2SAT 97
--- NOTE | 2024-04-18 11:55 | EXP.HP ---
History of Present Illness *Admission Date: 04/18/24 *Reason for visit:: Dyspepsia/bloating *History of present illness: Mr. Fields is a 58-year-old gentleman who is here for dyspepsia and nausea. The examination is deemed medically necessary for EGD. The patient has been seen, interviewed and examined prior to the procedure by both myself and the anesthesia provider. [facility] Disclaimer: The information contained in this section may have been updated after the patient was seen, as this information can be updated by other users. Medical History (Updated 04/18/24 @ 11:57 by Maxim Vaughan II, MD) Kidney stones Mcadams esophagus Diabetes CAD (coronary artery disease) HTN (hypertension) Surgical History History of extraction of renal calculus History of heart artery stent History of cardiac radiofrequency ablation History of Simran fundoplication Family History Other Family history of diabetes mellitus Social History Smoking Status: Never smoker second hand exposure: No alcohol intake: never counseling provided: none substance use type: opiates current occupational status: employed and retired Travel in the last 8 weeks: None household members: spouse housing: house current occupational exposures/hazards: No caffeine: Yes Other Medical History Have you received the Flu Vaccine for this season: No Have you received the Pneumonia Vaccine: No Review of Systems Review of Systems Review of systems (narrative): Negative *Cardiovascular Comments: Negative *Gastrointestinal Comments: Negative *Genitourinary Comments: Negative *Musculoskeletal Comments: Negative *Neurologic Comments: Negative Meds Home Medications and Allergies Home Medications ?Medication ?Instructions ?Recorded ?Confirmed ?Type aspirin 81 mg tablet,delayed 81 mg PO QDAY Heart disease 07/14/17 04/18/24 History release (Adult Low Dose Aspirin) buprenorphine 8 mg-naloxone 2 mg 2 - 8 mg sublingual DAILY 08/31/17 04/18/24 History 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 ##42 diltiazem HCl 120 mg 120 mg PO DAILY bp 03/29/18 04/18/24 History capsule,extended release 24 hr atorvastatin 80 mg tablet 80 mg PO QDAY Cholesterol 09/01/18 04/18/24 History losartan 50 mg-hydrochlorothiazide 1 tab PO QDAY bp 09/01/18 04/18/24 History 12.5 mg tablet metoprolol tartrate 50 mg tablet 50 mg PO DAILY 04/07/24 04/18/24 History promethazine 25 mg tablet 25 mg PO Q6H PRN Nausea 04/18/24 04/18/24 History New Prescriptions to Start Prescriptions: Allergies Allergy/AdvReac Type Severity Reaction Status Date / Time influenza virus vaccine, Allergy Unknown Difficulty Verified 04/18/24 10:56 specific Breathing escitalopram [From Lexapro] AdvReac Palpitation Verified 04/18/24 10:56 s Exam Data for Last 24 hours Vital signs and Labs for Last 24 Hours: Temp Pulse Resp BP Pulse Ox O2 Del Method 97.0 F L 68 18 145/94 H 97 Room Air 04/18/24 10:58 04/18/24 10:58 04/18/24 10:58 04/18/24 10:58 04/18/24 10:58 04/18/24 10:58 Laboratory Results - last 24 hr 04/18/24 10:56: POC Glucose 195 H *Routine HEENT Exam Head: Present normocephalic Eye: Present EOMI and PERRL ENT: Present mucous membranes moist *Routine Neck Exam Neck: Present supple *Routine Respiratory Exam Respiratory: Present CTA bilaterally *Routine Cardiovascular Exam Cardiovascular: Present RRR *Routine Abdominal Exam Abdominal: Present soft and normoactive bowel sounds; Absent tenderness *Routine Rectal Exam Rectal:: deferred *Routine Genitalia Exam Genitalia:: deferred *Routine Extremities Exam Extremities: Absent cyanosis, clubbing or edema *Routine Skin Exam Skin: Present warm; Absent rash *Routine Neurological Exam Neurological: Present alert and oriented X3 Assessment and Plan *Assessment and plan (1) Functional dyspepsia: Status: Acute Category: Medical Code(s): K30 - Functional dyspepsia (2) Nausea: Status: Acute Category: Medical Code(s): R11.0 - Nausea (3) Non-cardiac chest pain: Status: Acute Category: Medical Code(s): R07.89 - Other chest pain Plan A/P: 1. Dyspepsia and nausea is the preprocedural diagnosis. The patient will be anesthetized/sedated using MAC sedation. The patient has been seen and examined. Cardiac and lung assessment prior to the examination is stable. Proceed with planned EGD
--- NOTE | 2024-04-18 12:05 | HMH.PROCNOTE ---
[facility] Procedure Note Date: 04/18/24 Time: 12:06 Procedure Note:: Upper Endoscopy Procedure Report: Esophagogastroduodenoscopy with cold biopsies Endoscopost: Maxim Vaughan II, MD Referring Physician: Mohsen Nation MD Date of Procedure: April 18, 2024 Equipment: Olympus GIF 190 standard upper endoscope Sedation: MAC sedation Indications: Mr. Fields is a 58-year-old gentleman who is here for surveillance upper endoscopy secondary to a history of Mcadams's esophagus. He also has had longstanding dyspepsia and GERD. He does take omeprazole. He reports bloating, fullness, belching, heartburn and intermittent regurgitation. He has had some noncardiac chest pain but reports no dysphagia. He also has constipation/obstipation and may go up to 5 days without a bowel movement. Procedure: Prior to the procedure, a history and physical exam was performed, and patient's medications and allergies were reviewed. The risks, benefits and alternatives of the sedation and procedure were discussed with the patient. All questions were answered and informed consent was obtained. The patient was brought to the procedure room. Patient identification and proposed procedure were verified by the physician and the nurse. The patient was placed in a left lateral decubitus position and the scope was passed under direct vision. Throughout the procedure, the patient's blood pressure, pulse, and oxygen saturations were monitored continuously. The upper GI endoscopy was accomplished without difficulty. The patient tolerated the procedure well. Findings: The scope was passed directly into the upper esophagus and advanced to the third portion of the duodenum. The post bulbar duodenum and duodenal bulb were normal with normal mucosa and conniventes. The scope was withdrawn through a normal duodenal bulb and pylorus into the stomach. There was bile reflux with mild linear reactive gastropathy of the antrum. There is mild atrophy of the body and fundus. The remainder of the antrum, body and fundus of the stomach were grossly normal. Upon retroflexion there was a 3 to 4 cm hiatal hernia. The diaphragmatic hiatus was at 39 cm and the top of the gastric folds was at 36 cm. The squamocolumnar junction/Z-line was at 29 cm leaving a 7 cm segment of long segment Mcadams's esophagus. The Waterflow classification was [id number]. Biopsies were taken at 2 cm segments at 35 cm, 33 cm and 31 cm from the incisors. Narrowband imaging was utilized and there was no obvious dysplasia identified within the Mcadams's there was no evidence of reflux esophagitis or strictures. The remainder of the esophageal mucosa was normal. Impression: 1. Long segment Mcadams's esophagus (Waterflow classification C7M7)?status post surveillance biopsies with NBI 2. Medium sized hiatal hernia (3 cm) 3. Bile reflux with mild linear reactive gastropathy and mild gastric atrophy Plan: I will follow-up the biopsies. I would continue to PPI therapy for complicated GERD. I would consider adding a promotility agent (Gimoti or Motegrity). He will need to stay on the fiber bowel regimen.
[2024-04-18 12:17] VITALS: BP 95/65; PULSE 60; RESP 16; TEMP 37.2; O2SAT 97
[2024-04-18 12:23] VITALS: BP 96/66; PULSE 56; RESP 16; O2SAT 95
[2024-04-18 12:40] VITALS: BP 100/68; PULSE 56; RESP 18; O2SAT 98
== END 2024-04-18 13:07 | disposition home or self-care (01) ==
PROVIDERS: PCP Family Medicine; Visit Provider Internal Medicine Gastroenterology
PROC: 0DJ08ZZ Inspection of Upper Intestinal Tract, Via Natural or Artificial Opening Endoscopic (ICD-10-PCS; CPT 43239; principal; 2024-04-18 12:00)
DX: K30 Functional dyspepsia (principal); R11.0 Nausea; R07.89 Other chest pain; R68.81 Early satiety; E11.43 Type 2 diabetes mellitus with diabetic autonomic (poly)neuropathy; K31.84 Gastroparesis; K29.40 Chronic atrophic gastritis without bleeding; K31.9 Disease of stomach and duodenum, unspecified; K44.9 Diaphragmatic hernia without obstruction or gangrene; K22.70 Barrett's esophagus without dysplasia
CPT/HCPCS: 43239; 82962; 88305; J7120

== ENCOUNTER 2024-05-09 16:09 | Emergency (ER) | payer MEDICARE, SELFPAY ==
[2024-05-09 16:10] VITALS: BP 199/103; PULSE 78; RESP 18; O2SAT 99; BMI 25.0
--- NOTE | 2024-05-09 16:18 | HMH.EDGENADL ---
Discharge Plan Disposition Patient Disposition: Eloped Chief Complaint: Dental/Oral Prescriptions Prescriptions: No Action aspirin [Adult Low Dose Aspirin] 81 mg tablet,delayed release (DR/EC) 81 mg PO QDAY buprenorphine-naloxone 8-2 mg film 2 - 8 mg SUBLINGUAL DAILY 28 Days Qty: 42 Patient Comments: diltiazem HCl 120 mg capsule,extended release 24hr 120 mg PO DAILY atorvastatin 80 MG tablet 80 mg PO QDAY Rx Instructions: take one tablet by mouth once daily. losartan-hydrochlorothiazide 1 EACH tablet 1 tab PO QDAY Rx Instructions: take one tablet by mouth once daily. metoprolol tartrate 50 mg Tablet 50 mg PO DAILY promethazine [Phenergan] 25 mg Tablet 25 mg PO Q6H PRN (Reason: Nausea) Gimoti 15 mg/spray spray with pump 1 spray intranasal AC Qty: 9.8 6RF Rx Instructions: administer 1 spray into ONE nostril 15-30 minutes before each meals and at bedtime Clinical Impressions Clinical Impression: Pain, dental Print Language Print Language: Bulgarian Discharge ED Provider: Tyson Morgan General Adult HPI General Chief complaint: Dental/Oral Stated complaint: Tooth Pain Time Seen by Provider: 05/09/24 16:12 Mode of Arrival: Ambulatory Source of Information: Patient Limitations: No Limitations Description of Symptoms (Recalled from ER Triage Doc. by RN): c/o upper tooth pain, PT states that he was at the dentist and had a tooth pulled 10-15 minutes ago on his left lower jaw, states now his upper left jaw is very painful and he needs something for it. He can't get pain medicine from his dentist due to him take suboxone. History of Present Illness HPI narrative: 58-year-old male presents today with left maxillary molar pain. States that he has been followed by Dr. Neely who is a local dentist for a dental infection on the left mandibular region and had a dental extraction just a few minutes prior to his evaluation today. States that after the tooth was extracted he started having pain in the left maxillary region despite the fact that his extraction was in the left mandibular aspect. He has not had significant pain or swelling in that area fevers etc. He specifically asked for anxiety medicine and states that the pain hurt so bad that he actually had to get out of his car and run to the emergency department. 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 ##42 diltiazem HCl 120 mg 120 mg PO DAILY bp 03/29/18 04/18/24 capsule,extended release 24 hr atorvastatin 80 mg tablet 80 mg PO QDAY Cholesterol 09/01/18 04/18/24 losartan 50 mg-hydrochlorothiazide 1 tab PO QDAY bp 09/01/18 04/18/24 12.5 mg tablet metoprolol tartrate 50 mg tablet 50 mg PO DAILY 04/07/24 04/18/24 promethazine 25 mg tablet 25 mg PO Q6H PRN Nausea 04/18/24 04/18/24 Previous Rx's ?Medication ?Instructions ?Recorded metoclopramide HCl 15 mg/spray 1 spray intranasal AC #9.8 mL 04/18/24 nasal spray with pump (Gimoti) Allergies Allergy/AdvReac Type Severity Reaction Status Date / Time influenza virus vaccine, Allergy Unknown Difficulty Verified 04/18/24 10:56 specific Breathing escitalopram [From Lexapro] AdvReac Palpitation Verified 04/18/24 10:56 s PFSH PFS Disclaimer: The information contained in this section may have been updated after the patient was seen, as this information can be updated by other users. Medical History (Updated 05/09/24 @ 16:21 by Tyson Morgan MD) Kidney stones Mcadams esophagus Diabetes CAD (coronary artery disease) HTN (hypertension) Surgical History History of extraction of renal calculus History of heart artery stent History of cardiac radiofrequency ablation History of Simran fundoplication Family History Other Family history of diabetes mellitus Social History Smoking Status: Never smoker second hand exposure: No alcohol intake: never counseling provided: none substance use type: opiates current occupational status: employed and retired Travel in the last 8 weeks: None household members: spouse housing: house current occupational exposures/hazards: No caffeine: Yes Other Medical History Have you received the Flu Vaccine for this season: No Have you received the Pneumonia Vaccine: No ROS Obtained: Yes All systems reviewed & no additional complaints except as documented Physical Exam General General appearance: alert and in no apparent distress ENT ENT exam: Present other (There is a left maxillary molar which has necrotic dental caries no significant gingival swelling surrounding this or obvious dental abscess no facial swelling there is a recent surgically absent left mandibular molar with appropriate clot formation and its fossa) Respiratory Respiratory exam: Present normal lung sounds bilaterally Cardiovascular Cardiovascular exam: Present regular rate Neurological Exam Neurological exam: Present alert and oriented X3 Medical Decision Making Medical Records Screening: Per USPSTF and CDC recommendations, given the prevalence of disease in our region, it is our hospital?s policy to screen for HIV and viral Hepatitis for all patients aged 18 and over and those with ongoing risk factors. Josh Inquiry Pt receiving controlled substance: No Vital Signs: 05/09/24 16:10 Pulse Rate [Left Radial] 78 Respiratory Rate 18 Blood Pressure [Right Arm] 199/103 H Blood Pressure Mean [Right Arm] 135 Blood Pressure Source [Right Arm] Automatic Cuff Blood Pressure Position [Right Arm] Sitting 02 Sat by Pulse Oximetry 99 Oxygen Delivery Method Room Air Medical Decision Narrative: 58-year-old with an unremarkable exam aside from dental caries in his left maxillary region. His recent dental extraction looks appropriate. No evidence of superficial or significant infection. Will provide topical anesthetic and reassess. Reassessment 4:34 PM dental balls were applied however patient eloped prior to me being able to discuss anything further with him. His remained back and had a conversation with her and she said he just had severe anxiety. Overall he looked fine from emergency standpoint and seems as though his anxiety was largely what was driving his visit today. No further conversations were had the patient. Return precautions were emphasized to his . Critical Care Critical Care Time Critical Care Time: No
--- NOTE | 2024-05-09 16:35 | PC.NURSE ---
pt walked out of ER, states that his anxiety is through the roof and he is unable to sit still. at with .
[2024-05-09 16:36] VITALS: BP 199/103; PULSE 78; RESP 18; TEMP -17.7; TEMP 0; O2SAT 99
== END 2024-05-09 16:37 | disposition left against medical advice (07) ==
PROVIDERS: Emergency Provider Student in an Organized Health Care Education/Training Program; PCP Family Medicine
DX: K08.89 Other specified disorders of teeth and supporting structures (principal)
CPT/HCPCS: 99281

== ENCOUNTER 2024-05-17 10:38 | Outpatient (CLI) | payer MEDICARE, SELFPAY ==
[2024-05-17 10:50] LABS: Microscopic, Urine URINE MICROSCOPIC (MICROSCOPIC)
[2024-05-17 11:20] LABS: Basophils # 0.1 K/mm3 (0-0.2); Basophils % 1.3 % (0.1-2.0); Eosinophils # 0.3 K/mm3 (0.0-0.4); Eosinophils % 3.8 % (0.1-12.0); Hematocrit 38.4 % (42.0-52.0); Hemoglobin 13.1 g/dL (14.1-18.0); Lymphocytes # 1.9 K/mm3 (0.7-4.5); Mean Corpuscular HGB Conc 34.2 g/dL (31.8-35.4); Mean Corpuscular Hemoglobin 28.3 pg (27.0-31.2); Mean Corpuscular Volume 82.7 fl (80-94); Mean Platelet Volume 8.4 fl (7.4-10.4); Monocytes # 0.5 K/mm3 (0.1-1.0); Monocytes % 7.4 % (1.7-9.3); Neutrophils # 4.1 K/mm3 (1.8-7.8); Neutrophils % 59.4 % (37.0-80.0); Platelet Count 226 K/mm3 (142-424); Red Blood Count 4.64 M/mm3 (4.60-6.20); Red Cell Distribution Width 13.5 % (11.5-17.5); White Blood Count 6.8 K/mm3 (4.8-10.8)
[2024-05-17 11:37] LABS: Alanine Aminotransferase 16 U/L (12-78); Albumin Level 4.5 g/dl (3.5-5.0); Albumin/Globulin Ratio 1.7 (1.1-1.8); Alkaline Phosphatase 84 U/L (38-126); Anion Gap 13.6 mEq/L (5-15); Aspartate Amino Transferase 19 U/L (17-59); Bilirubin,Total 0.8 mg/dl (0.2-1.3); Blood Urea Nitrogen 20 mg/dl (9-20); Calcium 9.8 mg/dl (8.4-10.2); Carbon Dioxide 30 mmol/L (22.0-30.0); Chloride 97 mmol/L (98-107); Estimated Glomerular Filt Rate 39 ml/min (>60); GFR (African American) 47 ML/MIN (>60); Globulin 2.6 g/dL (1.3-3.2); Potassium 4.6 mmoL/L (3.5-5.1); Sodium 136 mmol/L (136-145); Total Protein,Serum 7.1 g/dl (6.3-8.2); Uric Acid 4.8 mg/dl (3.5-8.5)
[2024-05-17 11:38] LABS: Chol/HDL Ratio 3.3 (1-3.5); Cholesterol 147 mg/dl (140-200); HDL Cholesterol 45 mg/dl (40-60); Triglycerides 69 mg/dl (30-150); VLDL Cholesterol 14 mg/dL (0-40)
[2024-05-17 11:49] LABS: Intact Parathyroid Hormone 51.2 pg/mL (7.5-53.5)
[2024-05-17 11:49] LABS: Direct LDL Cholesterol 93.13 mg/dL (100-129)
[2024-05-17 11:54] LABS: 25-OH Vitamin D, Total 55.3 ng/mL (30-100)
[2024-05-17 12:00] LABS: Glucose 424 mg/dl (74-100)
[2024-05-17 12:35] LABS: Vitamin B12 > 1000 pg/mL (239-931)
[2024-05-17 15:01] LABS: Appearance,Urine CLEAR (Clear); Bilirubin,Urine Negative (Negative); Blood, Urine Negative (Negative); Color,Urine YELLOW (Yellow); Glucose,Urine (UA) 3+ (Negative); Ketones,Urine Negative (Negative); Leukocyte Esterase,Urine Negative (Negative); Nitrate,Urine Negative (Negative); PH,Urine 5.5 (5.0-8.5); Protein,Urine Negative (Negative); Urobilinogen,Urine 0.2 EU/dl (0.2)
[2024-05-17 15:26] LABS: Bacteria,Urine 1+ /lpf; Squamous Epithelial Cell,Urine Occasional #/hpf (0-5); WBC,Urine Occasional #/hpf (0-3)
[2024-05-17 15:55] LABS: Creatinine,Urine Random 112 mg/dL (Not Estab.)
== END 2024-05-17 23:59 | disposition home or self-care (01) ==
PROVIDERS: PCP Family Medicine; Referring Provider Physician Assistant; Visit Provider Internal Medicine Nephrology
DX: E11.65 Type 2 diabetes mellitus with hyperglycemia (principal); N18.32 Chronic kidney disease, stage 3b; Z79.4 Long term (current) use of insulin; G62.9 Polyneuropathy, unspecified; I10 Essential (primary) hypertension; E11.22 Type 2 diabetes mellitus with diabetic chronic kidney disease
CPT/HCPCS: 36415; 80053; 80061; 81001; 82043; 82306; 82570; 82607; 83036; 83970; 84156; 84550; 85025

== ENCOUNTER 2024-06-08 13:37 | Outpatient (CLI) | payer MEDICARE, SELFPAY ==
--- NOTE | 2024-06-08 13:48 | NM_ITS ---
FINAL REPORT CLINICAL HISTORY: SOA/HX DVT/ POS D-DIMER COMPARISON: No chest radiograph available. FINDINGS: NUCLEAR MEDICINE VENTILATION AND PERFUSION IMAGING V/Q scan is performed utilizing 36.6 technetium 99 M DTPA aerosol and IV administration of 8.85 technetium 99 M MAA. Images were obtained in AP, PA, lateral, and oblique projections. There is no evidence of segmental or subsegmental mismatch perfusion defects. IMPRESSION: Low probability for pulmonary embolus. Reviewed, Interpreted and Dictated by Angela Lopez MD Transcribed by Sonia Leos Authenticated and [facility]
[2024-06-08] MEDS: SODIUM CHLORIDE 0.9% 10ML SYR (RAD ONLY) 10 ML IV (14:00)
[2024-06-08] MEDS: ISOTOPE DTPA(AEROSOL);1 DOSE (UP TO 75 MCI) IV (14:00)
[2024-06-08] MEDS: ISOTOPE TC MAA;1 DOE (UP TO 45 MCI) 1 DOSE IV (14:55)
== END 2024-06-08 23:59 | disposition home or self-care (01) ==
LOC: RAD 13:38
PROVIDERS: PCP Family Medicine; Visit Provider Family Medicine
DX: R06.02 Shortness of breath (principal); Z86.718 Personal history of other venous thrombosis and embolism; R79.89 Other specified abnormal findings of blood chemistry
CPT/HCPCS: 78582; A9540; A9567

== ENCOUNTER 2024-09-27 11:52 | Outpatient (CLI) | payer MEDICARE, SELFPAY ==
[2024-09-27 12:00] LABS: Microscopic, Urine URINE MICROSCOPIC (MICROSCOPIC)
[2024-09-27 12:27] LABS: Hematocrit 38.9 % (42.0-52.0); Hemoglobin 12.9 g/dL (14.1-18.0); Mean Corpuscular HGB Conc 33.2 g/dL (31.8-35.4); Mean Corpuscular Hemoglobin 27.1 pg (27.0-31.2); Mean Corpuscular Volume 81.7 fl (80-94); Platelet Count 185 K/mm3 (142-424); Red Blood Count 4.76 M/mm3 (4.60-6.20); Red Cell Distribution Width 12.8 % (11.5-17.5); White Blood Count 5.5 K/mm3 (4.8-10.8)
[2024-09-27 12:45] LABS: Appearance,Urine Clear (Clear); Bacteria,Urine Trace /lpf; Bilirubin,Urine Negative (Negative); Blood, Urine Negative (Negative); Color,Urine Yellow (Yellow); Glucose,Urine (UA) 3+ (Negative); Ketones,Urine Negative (Negative); Leukocyte Esterase,Urine Negative (Negative); Nitrate,Urine Negative (Negative); PH,Urine 5.5 (5.0-8.5); Protein,Urine Negative (Negative); Specific Gravity, Urine 1.015 (1.005-1.030); Squamous Epithelial Cell,Urine Occasional #/hpf (0-5); Urobilinogen,Urine 0.2 EU/dl (0.2)
[2024-09-27 12:52] LABS: Creatinine,Urine Random 102 mg/dL (Not Estab.)
[2024-09-27 13:03] LABS: Alanine Aminotransferase 21 U/L (12-78); Albumin Level 4.7 g/dl (3.5-5.0); Alkaline Phosphatase 69 U/L (38-126); Anion Gap 12.6 mEq/L (5-15); Aspartate Amino Transferase 26 U/L (17-59); Bilirubin,Total 0.6 mg/dl (0.2-1.3); Blood Urea Nitrogen 14 mg/dl (9-20); Calcium 9.5 mg/dl (8.4-10.2); Carbon Dioxide 26 mmol/L (22.0-30.0); Chloride 101 mmol/L (98-107); Estimated Glomerular Filt Rate 42 ml/min (>60); GFR (African American) 50 ML/MIN (>60); Globulin 2.4 g/dL (1.3-3.2); Glucose 331 mg/dl (74-100); Potassium 4.6 mmoL/L (3.5-5.1); Sodium 135 mmol/L (136-145); Total Protein,Serum 7.1 g/dl (6.3-8.2); Uric Acid 5.2 mg/dl (3.5-8.5)
[2024-09-27 13:10] LABS: Hemoglobin A1C 13.3 % (4.0-6.0)
[2024-09-27 13:15] LABS: Intact Parathyroid Hormone 76.1 pg/mL (7.5-53.5)
[2024-09-27 13:20] LABS: 25-OH Vitamin D, Total 66.2 ng/mL (30-100)
== END 2024-09-27 23:59 | disposition home or self-care (01) ==
LOC: LAB 11:54
PROVIDERS: PCP Family Medicine; Visit Provider Internal Medicine Nephrology
DX: E11.22 Type 2 diabetes mellitus with diabetic chronic kidney disease (principal); N18.32 Chronic kidney disease, stage 3b
CPT/HCPCS: 36415; 80053; 81001; 82306; 82570; 83036; 83970; 84156; 84550; 85027

== ENCOUNTER 2025-04-27 08:10 | Outpatient (CLI) | payer MEDICARE, SELFPAY ==
[2025-04-27 08:18] LABS: Microscopic, Urine URINE MICROSCOPIC (MICROSCOPIC)
--- OUTSIDE RECORDS SUMMARY | 2025-04-27 08:18 | XMS_ITS | Data Portability ---
Author Organization [place] MARTA [facility] [place] [facility] Address [address] [place] [address] Assessment No assessment recorded. Plan of Treatment Reminders Order Date Submit Date Provider Last Modified By Organization Details Last Modified Time Details Appointments None recorded. Lab urinalysis , dipstick, auto 2018 019 [facility], [address], [place], [address], 9 17:07:36 Referral None recorded. Procedures None recorded. Surgeries None recorded. Imaging None recorded. Medication Orders tamsulosin 0.4 mg capsule 2018 019 INTERFACE [facility], [address], [address], 9 17:07:45 Patient TargetsNo targets recorded. Patient Instructions Encounter Date Encounter Id Patient Instructions Last Modified By Organization Details Last Modified Time 02/16/2019 [id number] healthy together [email or web address] Not availabl e 02/16/2019 17:07:36 benign prostatic hyperplasia: care instructions [email or web address] Not available 02/16/2019 17:07:36 Reason for Referral None Reported. Results Created Date Observation Date Name Description Value Unit Range Abnormal Flag Note LastModifiedBy Organization Detail LastModifiedTime 02/17/20 19 02/16/2019 urina lysis , dipst ick, auto Unknown Analyte Yellow Not Available [facility] [address], [place], [address], 02/16/2019 15:01:29 02/17/20 19 02/16/2019 urina lysis , dipst ick, auto Unknown Analyte Clear Not Available [facility] [address], [place], [address], 02/16/2019 15:01:29 02/17/20 19 02/16/2019 urina lysis , dipst ick, auto Unknown Analyte 1.025 Not Available [facility] [address] [place] [address] [address], [place], [address], 02/16/2019 15:01:29 02/17/20 19 02/16/2019 urina lysis , dipst ick, auto Unknown Analyte 1.003 - 1.035 Not Available [facility] [address] [place] [address] [address], [place], [address], 02/16/2019 15:01:29 02/17/20 19 02/16/2019 urina lysis , dipst ick, auto Unknown Analyte 5.0 Not Available [facility] [address], [place], [address], 02/16/2019 15:01:29 02/17/20 19 02/16/2019 urina lysis , dipst ick, auto Unknown Analyte 5.0 - 8.0 Not Available [facility] [address] [place] [address] [address], [place], [address], 02/16/2019 15:01:29 02/17/20 19 02/16/2019 urina lysis , dipst ick, auto Unknown Analyte Negati ve Not Available [facility] [address] [place] [address] [address], [place], [address], 02/16/2019 15:01:29 02/17/20 19 02/16/2019 urina lysis , dipst ick, auto Unknown Analyte Negati ve Not Available [facility] [address], [place], [address], 02/16/2019 15:01:29 02/17/20 19 02/16/2019 urina lysis , dipst ick, auto Unknown Analyte Negati ve Not Available [facility] [address] [place] [address] [address], [place], [address], 02/16/2019 15:01:29 02/17/20 19 02/16/2019 urina lysis , dipst ick, auto Unknown Analyte Negati ve Not Available [facility] [address] [place] [address] [address], [place], [address], 02/16/2019 15:01:29 02/17/20 19 02/16/2019 urina lysis , dipst ick, auto Unknown Analyte Negtiv e Not Available [facility] [address], [place], [address], 02/16/2019 15:01:29 02/17/2002/16/2019 urina lysis , dipst ick, auto Unknown Analyte Negati ve - Trace Not Available [facility] [address] [place] [address] [address], [place], [address], 02/16/2019 15:01:29 02/17/20 19 02/16/2019 urina lysis , dipst ick, auto Unknown Analyte >1000 mg/dl Not Available [facility] [address] [place] [address] [address], [place], [address], 02/16/2019 15:01:29 02/17/2002/16/2019 urina lysis , dipst ick, auto Unknown Analyte Normal Not Available [facility] [address], [place], [address], 02/16/2019 15:01:02/17/2002/16/2019 urina lysis , dipst ick, auto Unknown Analyte Negati ve Not Available [facility] [address], [place], [address], 02/16/2019 15:01:29 02/17/20 19 02/16/2019 urina lysis , dipst ick, auto Unknown Analyte Negati ve Not Available [facility] [address], [place], [address], 02/16/2019 15:01:02/17/2002/16/2019 urina lysis , dipst ick, auto Unknown Analyte 1 mg/dl Not Available [facility] [address], [place], [address], 02/16/2019 15:01:29 02/17/2002/16/2019 urina lysis , dipst ick, auto Unknown Analyte Normal - 1mg/dl Not Available [facility] [address], [place], [address], 02/16/2019 15:01:29 02/17/20 19 02/16/2019 urina lysis , dipst ick, auto Unknown Analyte 1 mg/dl (+) Not Available [facility] [address], [place], [address], 02/16/2019 15:01:29 02/17/20 19 02/16/2019 urina lysis , dipst ick, auto Unknown Analyte Negati ve Not Available [facility] [address] [place] [address] [address], [place], [address], 02/16/2019 15:01:29 02/17/20 19 02/16/2019 urina lysis , dipst ick, auto Unknown Analyte Negati ve Not Available [facility] [address], [place], [address], 02/16/2019 15:01:29 02/17/20 19 02/16/2019 urina lysis , dipst ick, auto Unknown Analyte Negati ve Not Available [facility] [address] [place] [address] [address], [place], [address], 02/16/2019 15:01:29 02/17/20 19 02/16/2019 urina lysis , dipst ick, auto Unknown Analyte Clean Catch Not Available [facility] [address] [place] [address] [address], [place], [address], 02/16/2019 15:01:29 02/17/20 19 02/16/2019 urina lysis , dipst ick, auto Unknown Analyte Automa juana Not Available [facility] [address], [place], [address], 02/16/2019 15:01:29 Result Notes None recorded. Medical Equipment None Reported. Allergies Allergen ID Allergen Name Allergen Category Reaction Reaction Severity Criticality Documentation Date Start Date Code Code System Note Provider Name and Address Organization Details Recorded Time 105174 Echinacea preparati on medicatio n Not available Not available Not available 06/05/20162007 29581 1 RxNorm Comme nt: PARAL YSIS; Creat ed By: Amina osborne;Cr eated Date: 12:14 :28 PM; Not Available [facility] 6 13:55:04 [id number] Fluarix medicatio n Not available Not available Not available 06/05/20162007 Comme nt: Creat ed By: Amina smithCr eated Date: 12:14 :53 PM; Not Available [facility] 6 13:55:04 Medications Name Sig Start Date Stop Date Status Note LastModified by Organization Details LastModified Time Nexium 40 mg capsule,janessa yed release Daily 2011 active Duration : 30 days;Lopez quency: daily;Me dication Descript ion: esomepra zole; Dosage:1 ; Route:or al; refills: 11; Quantity :30 delayed release capsule Not Available Not Available Not Available tamsulosin 0.4 mg capsule Take 1 capsule every day by oral route. 2018 active Not Available Not Available Not Avai lable metformin (bulk) 100 % powder Daily active Frequenc y: daily;Al t Frequenc y: with food;Med ication Descript ion: metformi n; Dosage:1 ; Route:co mpoundin g; refills: 0 Not Available Not Available Not Available Januvia Daily active Frequenc y: daily;Me dication Descript ion: sitaglip tin; Dosage:1 ; Route:or al; refills: 0 Not Available Not Available Not Available oxycodone 10 mg tablet Every six to eight hours active Frequenc y: q6-8h;Al t Frequenc y: prn pain;Med ication Descript ion: oxycodon e; Dosage:1 ; Route:or al; refills: 0; Quantity :90 tablet Not Available Not Available Not Available Vitals Date Recorded Body height Body mass index (BMI) Body weight Heart rate Systolic And Diastolic Provider Name and Address Organization Details Last Updated DateTime 02/16/2019 182.88 cm 30.8 kg/m2 093839.4 7 g 95 /min 116/86 mm[Hg] Tran Lisa [facility] 02/16/2019 14:59:26 Social History Question Answer Notes LastModified by Organizat ion Details LastModified Time Tobacco Smoking Status Never Smoker Tran figueredo [facility] 02/16/2019 14:59:35 How Much Tobacco Do You Chew? None [email or web address] Information not available 02/16/2019 Marital Status [email or web address] Informatio n not available 02/16/2019 Sex: Unknown Functional Status Question Answer Note LastModified by Organization D etails LastModified Time What is your level of alcohol consumption? None [email or web address] Information not available 02/16/2019 Mental Status None recorded. Family History Nothing Reported. Medical History Condition Response Anxiety Disorder Y Diabetes Y Kidney Stones Y High Cholesterol N Acid Reflux (GERD) Y Heart Disease Y Ulcers Y Past Encounters Encounter ID Performer Location Encounter Start Date Encounter Closed Date Diagnosis/Indication Diagnosis SNOMED-CT Code Diagnosis ICD10 Code Diagnosis IMO Codes Diagnosis Note [id number] NICOLA HOLLAND MD [facility] [address] [place] [address] 02/16/2019 13:52:11 02/16/2019 15:37:19 Benign prostatic hyperplasia 558428932 N40.1 he will follow-up with me in [place] in 3 months. If he fails to improve on therapy we will arrange for cystoscopy possible [facility] Concerns Section Related Observation LastModified by Organization Detai ls LastModified Time None Recorded Concern Status LastModified by Organization Details LastModified Time None Recorded Advance Directives Directive None Recorded Payers Insurance Date Sequence Insurance Name Policy Number Policy Mcmanus Covered Member ID Mcmanus Member ID Guarantor Name 02/16/2019 1 [place] [id number] [employer] [id number] [employer] Notes Date Note Type Note Provider Name and Address Organization Details Recorded Time 02/16/2019 text/html patient was seen previously by me in [place] with history of stones and reported urethral stricture. He also has poorly controlled diabetes mellitus most of which may be attributed to his lack of dietary discipline. At any rate recently had more bothersome symptoms. His magazine repairer has encouraged him to adhere to his diet and achieve better glucose control before any intervention. He is also had issues with chronic prostatitis like symptoms with painful ejaculation. He is also intermittently having post void dribbling. We discussed a trial of tamsulosin we discussed that his discomfort may be either chronic prostatitis or poorly controlled glucosuria. We will try tamsulosin NICOLA HOLLAND MD [address], [place], [address], [facility] 02/16/2019 17:08:40
--- OUTSIDE RECORDS SUMMARY | 2025-04-27 08:18 | XMS_ITS | Clinical Summary ---
Author Organization Healthcare Address [address] [id number] Care Team Providers Care Right Of Way Man Name Role Phone Unavailable Primary Care Provider Unavailabl e Social History Tobacco Use Types Packs/Day Years Used Date Smoking Tobacco: Never Assessed Sex and Gender Information Value Date Recorded Sex Assigned at Not on file Legal Sex Male 7:37 PM EDT Gender Identity Not on file Sexual Orientation Not on file Plan of Treatment Health Maintenance Due Date Last Done Comments [facility]-Depression Screening 1965 [facility]-/Child/Adol SDOH Screenings 1965 [facility]- SDOH Screenings 10/08/1983 [facility]-Adult SDOH Screenings 10/08/1983 [facility]-DTaP,Tdap,and Td Vaccine s (1 - Tdap) 1984 [facility]-Hepatitis B Vaccines (1 of 3 - 19+ 3-dose series) 1984 CT Colonography 2010 Colonoscopy 2010 FIT-DNA 2010 FIT 2010 FOBT 2010 Sigmoidoscopy 2010 [facility]-Colorectal Cancer Screening 2010 [facility]-Pneumococcal Vaccine: 50 + Years (1 of 1 - PCV) 10/08/2015 [facility]-Zoster Vaccines (1 of 2) 10/08/2015 [id number] Vaccine (3 - season) 2025 04/12/2021, 09/12/2020 [facility]-Influenza Vaccine (#1) 2025 HPV Vaccines Aged Out No longer eligi ble based on patient's age to complete this topic [facility]-HIB Vaccines Aged Out No longer e ligible based on patient's age to complete this topic [facility]-Hepatitis A Vaccines Aged Out No longer eligible based on patient's age to complete this topic [facility]-IPV Vaccines Aged Out No longer e ligible based on patient's age to complete this topic [facility]-Rotavirus Vaccines Aged Out No lo nger eligible based on patient's age to complete this topic
[2025-04-27 08:35] LABS: Hematocrit 39.6 % (42.0-52.0); Hemoglobin 13.3 g/dL (14.1-18.0); Mean Corpuscular HGB Conc 33.6 g/dL (31.8-35.4); Mean Corpuscular Hemoglobin 27.4 pg (27.0-31.2); Mean Corpuscular Volume 81.6 fl (80-94); Nucleated Red Blood Cells % 0 %; Platelet Count 171 K/mm3 (142-424); Red Blood Count 4.85 M/mm3 (4.60-6.20); Red Cell Distribution Width-SD 36.2 fL; White Blood Count 5.9 K/mm3 (4.8-10.8)
[2025-04-27 08:37] LABS: Bilirubin,Urine Negative (Negative); Color,Urine YELLOW (Yellow); Glucose,Urine (UA) 3+ (Negative); Ketones,Urine Negative (Negative); Leukocyte Esterase,Urine Negative (Negative); PH,Urine 5.5 (5.0-8.5); Protein,Urine Negative (Negative); Specific Gravity, Urine 1.020 (1.005-1.030); Urobilinogen,Urine 0.2 EU/dl (0.2)
[2025-04-27 08:57] LABS: Hemoglobin A1C 12.4 % (4.0-6.0)
[2025-04-27 09:00] LABS: Alanine Aminotransferase 16 U/L (12-78); Albumin Level 4.5 g/dl (3.5-5.0); Albumin/Globulin Ratio 1.8 (1.1-1.8); Alkaline Phosphatase 97 U/L (38-126); Anion Gap 15.7 mEq/L (5-15); Aspartate Amino Transferase 17 U/L (17-59); Bilirubin,Total 1.0 mg/dl (0.2-1.3); Blood Urea Nitrogen 26 mg/dl (9-20); Calcium 9.5 mg/dl (8.4-10.2); Carbon Dioxide 26 mmol/L (22.0-30.0); Chloride 96 mmol/L (98-107); Creatinine,Serum 1.90 mg/dl (0.66-1.25); Estimated Glomerular Filt Rate 36 ml/min (>60); GFR (African American) 44 ML/MIN (>60); Globulin 2.5 g/dL (1.3-3.2); Potassium 4.7 mmoL/L (3.5-5.1); Sodium 133 mmol/L (136-145); Total Protein,Serum 7.0 g/dl (6.3-8.2); Uric Acid 4.8 mg/dl (3.5-8.5)
[2025-04-27 09:17] LABS: 25-OH Vitamin D, Total 51.6 ng/mL (30-100)
[2025-04-27 09:35] LABS: Glucose 469 mg/dl (74-100)
== END 2025-04-27 23:59 | disposition home or self-care (01) ==
PROVIDERS: PCP Family Medicine; Visit Provider Internal Medicine Nephrology
DX: I12.9 Hypertensive chronic kidney disease with stage 1 through stage 4 chronic kidney disease, or unspecified chronic kidney disease (principal); N18.32 Chronic kidney disease, stage 3b; E11.22 Type 2 diabetes mellitus with diabetic chronic kidney disease; N22 Calculus of urinary tract in diseases classified elsewhere
CPT/HCPCS: 36415; 80053; 81001; 82306; 82570; 83036; 83970; 84156; 84550; 85027